=== PATIENT | male | born 1955 | race Caucasian/White ===

== ENCOUNTER → 2022-07-05 14:08 | Outpatient (CLI) | payer BC, SELFPAY ==
--- NOTE | 2022-07-05 14:12 | XR_ITS ---
FINAL REPORT CLINICAL HISTORY: cough FINDINGS: Two views of the chest were obtained. The heart size and pulmonary vascularity are within normal limits. The mediastinum is normal. No acute pulmonary abnormality is identified. There is no pneumothorax. There are moderate degenerative changes in the thoracic spine. IMPRESSION: No active cardiopulmonary disease. Reviewed, Interpreted and Dictated by Jf Carrera III, MD Transcribed by Merlene Driver Authenticated and [facility]
== END ==
PROVIDERS: Visit Provider Student in an Organized Health Care Education/Training Program
DX: R05.9 Cough, unspecified (principal)
CPT/HCPCS: 71046

== ENCOUNTER 2023-07-03 18:41 | Outpatient (CLI) | payer BC, SELFPAY | END 2023-07-03 23:59 | LOC: LAB.DROPOF 18:42 | PROVIDERS: PCP Student in an Organized Health Care Education/Training Program; Visit Provider Student in an Organized Health Care Education/Training Program | DX: R05.9 Cough, unspecified (principal) | CPT/HCPCS: 87635 ==